=== PATIENT | male | born 1960 | race Caucasian/White ===

== ENCOUNTER 2023-04-24 10:06 | Inpatient (IN) | payer BC ==
[~2023-04-24] VITALS: Ht 177.8 cm; Wt 90.4 kg
[2023-04-24] VITALS (7 sets, daily range): BP systolic 100–117; BP diastolic 50–66; TEMP 97.7–98.2; O2SAT 92–97
[~2023-04-24 10:06] MED LIST: HYDROmorphone HCL 2MG/ML 1ML VIAL As Ordered ONE; LIDOCAINE 2% 100MG/5ML SDV (FOR ANES.) As Ordered ONE; LR 1,000 ML IV SCH; MIDAZOLAM INJ 2MG/2ML VIAL As Ordered ONE; ONDANSETRON 4MG 2ML VIAL As Ordered ONE; ROCURONIUM BROMIDE 50MG/5ML VIAL As Ordered ONE; VITMTA PO; ceFAZolin SOD 2 GM in IV 1 EA IV ONE; fentaNYL 100 MCG/2 ML INJECTION As Ordered ONE; propofoL 200 MG/20 ML VIAL As Ordered ONE
[2023-04-24] MEDS ORDERED: HOME MED LIST COMPLETE! XX SCH (11:00)
[2023-04-24] MEDS ORDERED: ceFAZolin 2 GM/D5W 50 ML IV BAG As Ordered ONE (13:21)
[2023-04-24] MEDS ORDERED: BUPIVACAINE HCL 0.25% 30ML VIAL As Ordered ONE (13:23)
[2023-04-24] MEDS ORDERED: LIDOCAINE 1% SDV 30ML VIAL As Ordered ONE (13:23)
[2023-04-24] MEDS ORDERED: NS 1,000 ML IV SCH (13:50)
[2023-04-24] MEDS ORDERED: PERCOCET 5MG/325MG TAB PO PRN (13:50)
[2023-04-24] MEDS ORDERED: ONDANSETRON 4MG 2ML VIAL IV PRN ×2 (13:50→17:35)
[2023-04-24] MEDS ORDERED: ACETAMINOPHEN TAB 650MG DOSE (2X325MG) PO PRN (13:50)
[2023-04-24] MEDS ORDERED: HEPARIN SOD (PORCINE) 5000UNITS/ML 1ML VIAL/SYRINGE As Ordered ONE (13:58)
[2023-04-24] MEDS ORDERED: KETAMINE HCL 200MG/20ML VIAL As Ordered ONE (14:16)
[2023-04-24] MEDS ORDERED: GLYCOPYRROLATE INJ 0.2 MG/ML 2 ML VIAL As Ordered ONE (14:22)
[2023-04-24] MEDS ORDERED: ROCURONIUM BROMIDE 50MG/5ML VIAL As Ordered ONE ×2 (14:33→15:32)
[2023-04-24] MEDS ORDERED: ACETAMINOPHEN 1000MG 100ML IV BAG As Ordered ONE (14:35)
[2023-04-24] MEDS ORDERED: hydrALAZINE 20MG/ML 1ML VIAL As Ordered ONE (15:11)
[2023-04-24] MEDS ORDERED: HYDROMORPHONE HCL 0.5 MG/ 0.5 ML SYRINGE IV PRN (17:35)
[2023-04-24] MEDS ORDERED: fentaNYL 100 MCG/2 ML INJECTION IV PRN (17:35)
[2023-04-24] MEDS ORDERED: LR 1,000 ML IV SCH (17:35)
[2023-04-24 18:31] LABS: HEMATOCRIT 41.3 % (42.0-52.0); HEMOGLOBIN 13.9 g/dl (13.5-17.5); MEAN CORPUSCULAR HEMOGLOBIN 30.9 pg (27.0-33.0); MEAN CORPUSCULAR HGB CONC 33.7 g/dl (32.0-36.5); MEAN CORPUSCULAR VOLUME 91.8 fl (80.0-96.0); PLATELET COUNT, AUTOMATED 210 10^3/uL (150-450); WHITE BLOOD COUNT 9.3 10^3/uL (4.0-10.0)
[2023-04-24 18:49] LABS: BLOOD UREA NITROGEN 18 MG/DL (9-23); CALCIUM LEVEL 8.3 MG/DL (8.3-10.6); CARBON DIOXIDE LEVEL 26 MMOL/L (20-31); CHLORIDE LEVEL 106 MMOL/L (98-107); CREATININE FOR GFR 1.22 MG/DL (0.70-1.30); GLOMERULAR FILTRATION RATE > 60.0 (>49); GLUCOSE, FASTING 154 MG/DL (74-106); POTASSIUM SERUM 3.9 MMOL/L (3.5-5.1); SODIUM LEVEL 139 MMOL/L (136-145)
[2023-04-24] MEDS: ceFAZolin SOD 1 GM in D5W MINI-BAG PLUS 50 ML IV SCH (19:57)
[2023-04-24] MEDS: DOCUSATE SODIUM 100MG CAPSULE PO SCH (19:57)
[2023-04-24] MEDS: HEPARIN SOD (PORCINE) 5000UNITS/ML 1ML VIAL/SYRINGE SC SCH (23:04)
[2023-04-25 02:00] VITALS: BP 119/67; TEMP 98.1; O2SAT 95
[2023-04-25] MEDS: ceFAZolin SOD 1 GM in D5W MINI-BAG PLUS 50 ML IV SCH (05:14)
[2023-04-25] MEDS: HEPARIN SOD (PORCINE) 5000UNITS/ML 1ML VIAL/SYRINGE SC SCH ×2 (05:14→14:00)
[2023-04-25 05:30] VITALS: BP 124/58; TEMP 98.2; O2SAT 94
[2023-04-25 05:56] LABS: HEMATOCRIT 37.8 % (42.0-52.0); HEMOGLOBIN 12.8 g/dl (13.5-17.5); MEAN CORPUSCULAR HEMOGLOBIN 31.2 pg (27.0-33.0); MEAN CORPUSCULAR HGB CONC 33.9 g/dl (32.0-36.5); MEAN CORPUSCULAR VOLUME 92.2 fl (80.0-96.0); PLATELET COUNT, AUTOMATED 175 10^3/uL (150-450); WHITE BLOOD COUNT 9.5 10^3/uL (4.0-10.0)
[2023-04-25] MEDS: PERCOCET 5MG/325MG TAB PO PRN ×3 (06:14→16:32)
[2023-04-25 06:27] LABS: BLOOD UREA NITROGEN 16 MG/DL (9-23); CALCIUM LEVEL 7.9 MG/DL (8.3-10.6); CARBON DIOXIDE LEVEL 25 MMOL/L (20-31); CHLORIDE LEVEL 105 MMOL/L (98-107); CREATININE FOR GFR 1.12 MG/DL (0.70-1.30); GLOMERULAR FILTRATION RATE > 60.0 (>49); GLUCOSE, FASTING 146 MG/DL (74-106); POTASSIUM SERUM 4.2 MMOL/L (3.5-5.1); SODIUM LEVEL 137 MMOL/L (136-145)
[2023-04-25 09:13] VITALS: O2SAT 93
[2023-04-25 09:14] VITALS: O2SAT 94
[2023-04-25] MEDS: DOCUSATE SODIUM 100MG CAPSULE PO SCH (09:26)
[2023-04-25 10:00] VITALS: BP 102/58; TEMP 98.1; O2SAT 97
[2023-04-25 14:00] VITALS: BP 100/55; TEMP 98.1; O2SAT 95
[2023-04-25] MEDS ORDERED: PERCOCET PO (14:59)
[2023-04-25] MEDS ORDERED: COLA100C5 PO (14:59)
[2023-04-25] MEDS ORDERED: BACT800T5 PO (14:59)
[2023-04-25] MEDS ORDERED: HYDR-4571 PO (17:16)
== END 2023-04-25 17:00 | disposition home or self-care (01) | DRG 484 ==
LOC: M OR 10:31 → M MSPAV 18:43
PROVIDERS: ADMIT Urology; ATTEND Urology
PROC: 8E0W4CZ Robotic Assisted Procedure of Trunk Region, Percutaneous Endoscopic Approach (ICD-10-PCS; 2023-04-24)
PROC: 07BC4ZZ Excision of Pelvis Lymphatic, Percutaneous Endoscopic Approach (ICD-10-PCS; 2023-04-24)
PROC: 0VT04ZZ Resection of Prostate, Percutaneous Endoscopic Approach (ICD-10-PCS; principal; 2023-04-24 12:45)
DX: C61 Malignant neoplasm of prostate (principal); Z88.5 Allergy status to narcotic agent